=== PATIENT | male | born 1980 | race Caucasian/White ===

== ENCOUNTER 2024-11-21 09:01 | Emergency (ER) | payer BC, MEDICAID ==
[2024-11-21] MEDS: Ketorolac 30 MG/ML SDV IVPUSH ONE (09:27)
[2024-11-21 09:29] LABS: BASOPHILS PERCENT AUTO 0.9 % (0.0-1.0); EOSINOPHILS PERCENT AUTO 2.4 % (1.0-3.0); LYMPHOCYTES PERCENT AUTO 17.3 % (20.5-50.1); MONOCYTES PERCENT AUTO 11.8 % (2-8); NEUTROPHILS PERCENT AUTO 67.6 % (42.2-75.2); PLATELET COUNT,PLT 303 10^3/uL (150-450); RED BLOOD CELL COUNT 5.18 10^6/uL (4.6-6.2); WHITE BLOOD CELL COUNT,WBC 9.7 10^3/uL (5.0-10.0)
[2024-11-21 09:37] LABS: A/G RATIO 1.0; ALANINE AMINOTRANSFERASE,ALT 94.0 U/L (16-63); ASPARTATE AMNIOTRANSFERASE,AST 66.0 U/L (15-37); BILIRUBIN TOTAL 0.5 mg/dL (0.2-1.0); BLOOD UREA NITROGEN,BUN 8.0 mg/dL (7-18); CARBON DIOXIDE,CO2 29.0 mmol/L (21-32); CHLORIDE,CL 100.0 mmol/L (98-107); CREATININE 0.82 mg/dL (0.70-1.30); EST CRCL DRUG DOSING (CG) 112.56 mL/min; GLUCOSE RANDOM 104.0 mg/dL (70-99); POTASSIUM,K 4.1 mmol/L (3.5-5.1); PROTEIN TOTAL,TP 8.2 g/dL (6.4-8.2); SODIUM,NA 137.0 mmol/L (136-145)
[2024-11-21 09:41] LABS: ESTIMATED GFR 110.0 mL/min (>=60)
[2024-11-21 09:55] LABS: INR 1.0 (0.9-1.2); PTT,PARTIAL THROMBOPLSTIN TIME 29.7 SEC (22.0-34.0)
[2024-11-21 10:03] LABS: D-DIMER QUANTITATIVE 346.0 ng/mL (0-400)
[2024-11-21] MEDS: Iopamidol 755 Mg/ML 100 ML Bottle IVPUSH ONE (11:09)
[2024-11-21] MEDS: Nitroglycerin 2% Oint 1 GM UD Packet TOP ONE (12:07)
[2024-11-21 16:01] LABS: APPEARANCE,URINE CLEAR (CLEAR); GLUCOSE,URINE NEGATIVE (NEGATIVE); OCCULT BLOOD,URINE NEGATIVE (NEGATIVE)
[2024-11-21 17:29] VITALS: BP 150/91; PULSE 75
== END 2024-11-21 16:45 ==
LOC: DL.ED 09:01
DX: R07.2 Precordial pain (principal); F17.210 Nicotine dependence, cigarettes, uncomplicated; Z88.0 Allergy status to penicillin; Z79.899 Other long term (current) drug therapy
CPT/HCPCS: 36415; 71045; 71275; 80053; 81003; 84484; 85025; 85379; 85610; 85730; 93005; 96374; 99285; A9270; J1885; Q9967